=== PATIENT | female | born 2005 | race Caucasian/White ===

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

== ENCOUNTER 2023-12-27 07:26 | Inpatient (IN) ==
[2023-12-27 10:17] LABS: ABS Lymphocytes 2.3 10^3/uL (1.0-4.8); ABS Neutrophils 9.8 10^3/uL (1.5-7.6); ABS Nucleated RBC 0.01 10^3/ul; Eosinophil % 0.1 %; Hematocrit 33.3 % (35-45); Hemoglobin 11.1 g/dL (11.5-14.3); Lymphocyte % 17.4 %; Mean Corpuscular Hemoglobin 29.3 pg (27-33); Mean Corpuscular Hgb Conc 33.3 g/dL (31-36); Mean Corpuscular Volume 87.8 fL (80-97); Mean Platelet Volume 9.6 fL (7.5-11.2); Nucleated Red Blood Cells % 0.1 %/100WBC (0.0-0.8); Platelet Count 244 10^3/uL (150-450); Red Blood Count 3.79 10^6/uL (3.63-4.92); Red Cell Distribution Width 15.2 % (12-17); White Blood Count 13.1 10^3/uL (3.8-11.8)
[2023-12-27 10:37] LABS: Uric Acid 3.9 mg/dL (2.3-6.6)
[2023-12-27 10:54] LABS: Urine Benzodiazepine Screen None Detected (None Detect); Urine Cannabinoids Screen None Detected (None Detect); Urine Opiates Screen None Detected (None Detect)
[2023-12-27 11:34] LABS: Urine Creatinine Concentration 25.99 mg/dL (20.00-320.00); Urine TP Creat Ratio 4.96 mg/mg
[2023-12-27] MEDS: Lactated Ringers 1000 ml BAG 1,000 ML IV ONE (12:00)
[2023-12-27 12:08] LABS: Albumin 3.4 g/dL (3.2-5.2); Albumin/Globulin Ratio 1.1 (1-3); Calcium 9.3 mg/dL (8.6-10.3); Creatinine, Serum 0.47 mg/dL (0.51-0.95); Globulin 3.1 g/dL (2-4); Potassium 3.9 mmol/L (3.5-5.0); Total Bilirubin 0.3 mg/dL (0.2-1.0); Total Protein 6.5 g/dL (6.4-8.9); eGFR CKD-EPI 139.7 (>60)
[2023-12-27] MEDS ORDERED: Sodium Citrate/Citric Acid LIQ 15 ML UDC PO PRN (13:08)
[2023-12-27] MEDS ORDERED: Phenylephrine 40 mcg/mL 10mL (400mcg) SYRINGE IV PUSH PRN ×2 (13:08)
[2023-12-27] MEDS: OBEPIDURAL (200 ML) 200 ML EPIDURAL SCH (13:35)
[2023-12-27] MEDS: Lactated Ringers 1000 ml BAG 1,000 ML IV SCH (13:35)
[2023-12-27 13:57] LABS: Urine Appearance Clear; Urine Bilirubin Negative (Negative); Urine Blood Negative (Negative); Urine Color Colorless; Urine Glucose Negative (Negative); Urine Ketones Negative (Negative); Urine Nitrite Negative (Negative); Urine Protein Negative (Negative); Urine Specific Gravity 1.009 (1.002-1.030); Urine Urobilinogen Negative (Negative); Urine pH 6.5 (5.0-8.0)
[2023-12-27] MEDS: Oxytocin in LR 20,000 MILLI.UNIT/1,000 ML BAG IV SCH (17:49)
[2023-12-27] MEDS: OBEPIDURAL (200 ML) 200 ML EPIDURAL ONE (17:50)
[2023-12-28] MEDS: Lidocaine 1% VIAL 10 MG/ML 30 ML VIAL INJ PRN (02:02)
[2023-12-28] MEDS ORDERED: Chloroprocaine 3% 20 ml VIAL ONE (02:32)
[2023-12-28] MEDS ORDERED: Lactated Ringers 1000 ml BAG 1,000 ML IV SCH (03:00)
[2023-12-28] MEDS: Witch Hazel PAD JAR TOPICAL PRN (03:42)
[2023-12-28] MEDS: Dibucaine 1% OINT 28.35 GM TUBE PR PRN (03:42)
[2023-12-28] MEDS: Lidocaine 1.5% EPI 1:200,000 30 ML SDV ONE (22:21)
[2023-12-28] MEDS: Lactated Ringers 1000 ml BAG 1,000 ML IV ONE (22:21)
[2023-12-28] MEDS: Measles, Mumps,Rubella VACC 0.5 ML/VIAL SUBCUT ONE (22:22)
[2023-12-28] MEDS: Lidocaine 1% VIAL 10 MG/ML 30 ML VIAL ONE (22:22)
[2023-12-28] MEDS: Oxytocin in LR 20,000 MILLI.UNIT/1,000 ML BAG IV SCH (22:22)
[2023-12-28] MEDS: Lidocaine 1% MPF 5 ML VIAL ONE (22:22)
[2023-12-28] MEDS: Lidocaine 1% w EPI 1:200,000 SDV 30 ML VIAL ONE (22:22)
[2023-12-29 07:04] LABS: ABS Eosinophils 0.1 10^3/uL (0.0-0.5); ABS Monocytes 0.8 10^3/uL (0.0-0.9); ABS Neutrophils 8.4 10^3/uL (1.5-7.6); Eosinophil % 0.6 %; Hematocrit 26.3 % (35-45); Hemoglobin 8.8 g/dL (11.5-14.3); Lymphocyte % 24.2 %; Mean Corpuscular Hemoglobin 29.4 pg (27-33); Mean Corpuscular Hgb Conc 33.3 g/dL (31-36); Mean Corpuscular Volume 88.2 fL (80-97); Mean Platelet Volume 8.9 fL (7.5-11.2); Platelet Count 195 10^3/uL (150-450); Red Blood Count 2.98 10^6/uL (3.63-4.92); Red Cell Distribution Width 15.2 % (12-17); White Blood Count 12.3 10^3/uL (3.8-11.8)
[2023-12-30 08:44] VITALS: BP 124/79
[2023-12-30] MEDS: Measles, Mumps,Rubella VACC 0.5 ML/VIAL SUBCUT ONE (09:55)
== END 2023-12-30 11:28 | disposition home or self-care (01) | DRG 560 ==
LOC: MCHOBOUT 07:26 → MCHOB 08:03
PROVIDERS: ADMIT Midwife; ATTEND Midwife